=== PATIENT | male | born 1975 | race Caucasian/White ===

== ENCOUNTER 2018-02-23 11:24 | Emergency (ER) | payer BC ==
[2018-02-23 11:29] VITALS: BMI 24.7
[2018-02-23 11:31] VITALS: BP 123/82; PULSE 64; RESP 17; TEMP 97.8; O2SAT 96
--- NOTE | 2018-02-23 12:38 | ED PDOC ---
HPI: Back Time Seen by Provider: 02/23/18 12:14 Chief Complaint (Nursing): Back Pain Chief Complaint (Provider): Back Pain History Per: Patient History/Exam Limitations: no limitations Onset/Duration Of Symptoms: Days (x4) Current Symptoms Are (Timing): Still Present Additional Complaint(s): 42 y/o male with PMHx of asthma presenting for evaluation of right sided lower back pain x4 days. Patient states on Friday he was bending over to lift a heavy object when he felt the pain. He states its gradually been worsening and describes it as an aching and squeezing pain. He reports taking Tylenol for discomfort with his last dose yesterday night with mild relief. He states symptoms worsen with ambulation. He denies any trauma, falls, fever, chills, urinary symptoms, abdominal pain, chest pain, nausea, vomiting, shortness of breath, incontinence, saddles anesthesia, or radiation of pain. PMD: None Past Medical History Reviewed: Historical Data, Nursing Documentation, Vital Signs Vital Signs: Last Vital Signs Temp 97.8 F 02/23/18 11:29 Pulse 64 02/23/18 11:29 Resp 17 02/23/18 11:29 BP 123/82 02/23/18 11:29 Pulse Ox 96 02/23/18 11:29 - Medical History PMH: Asthma - Surgical History Surgical History: No Surg Hx - Family History Family History: States: Unknown Family Hx - Social History Current smoker - smoking cessation education provided: No Alcohol: None Drugs: Denies - Home Medications Home Medications: Ambulatory Orders Medication Instructions Recorded Albuterol Sulfate [Albuterol 2 puff IH QID #1 inh 01/01/14 Sulfate Hfa] Singulair 01/01/14 Cyclobenzaprine [Cyclobenzaprine 10 mg PO Q8 PRN #12 tab 02/23/18 HCl] Naproxen 500 mg PO BID PRN #20 tab 02/23/18 - Allergies Allergies/Adverse Reactions: Allergies Allergy/AdvReac Type Severity Reaction Status Date / Time Iodinated Contrast- Oral and Allergy Unknown unknown Verified 02/23/18 11:53 IV Dye shellfish derived Allergy Unknown unknown Verified 02/23/18 12:21 Review of Systems ROS Statement: Except As Marked, All Systems Reviewed And Found Negative Constitutional: Negative for: Fever, Chills Cardiovascular: Negative for: Chest Pain Respiratory: Negative for: Shortness of Breath Gastrointestinal: Negative for: Nausea, Vomiting, Abdominal Pain, Diarrhea Genitourinary Male: Negative for: Dysuria, Frequency, Incontinence Neurological: Negative for: Numbness Physical Exam - Reviewed Nursing Documentation Reviewed: Yes Vital Signs Reviewed: Yes - Physical Exam Comments: GENERAL APPEARANCE: Patient is awake, alert, oriented x 3, in no acute distress. Resting comfortably. SKIN: Warm, dry; (-) cyanosis. EYES: (-) conjunctival pallor. ENMT: Mucous membranes moist. Airway patent, (-) stridor. NECK: Supple, FROM (-) tenderness, (-) stiffness, (-) lymphadenopathy. CHEST AND RESPIRATORY: (-) rales, (-) rhonchi, (-) wheezes; breath sounds equal bilaterally. Respirations even and nonlabored, speaking in full sentences. HEART AND CARDIOVASCULAR: (-) irregularity; (-) murmur, (-) gallop. ABDOMEN AND GI: Soft; (-) tenderness; (-) distention (-) guarding. BACK: (+) right paralumbar tenderness, (+) spasm to right paralumbar area, (-) midline tenderness, (-) deformity. Straight leg raising (-) bilaterally. EXTREMITIES: (-) deformity. Distal pulses good bilaterally. NEURO AND PSYCH: Mental status as above. Intact sensation bilaterally; normal strength in extension of the knees, plantar and dorsiflexion of the toes. Gait steady, speech clear. EOMI and painless. (-) facial asymmetry (-) aphasia. - ECG O2 Sat by Pulse Oximetry: 96 (RA) Pulse Ox Interpretation: Normal Medical Decision Making Medical Decision Makin:22 Impression: Acute back pain/strain Plan: --Flexeril 10mg PO (Patient not driving home) --Toradol 30mg IM --Ultram 50mg PO --Reevaluation 1400 On re-evaluation, patient reports improvement of symptoms. On exam, patient remains AAOx3, in no acute distress. On exam, neck is supple, lungs CTA, cardiac RRR, abdomen is soft and non-tender, neuro exam shows no focal findings. Ambulatory in ED with a steady, unassisted gait. VSS, stable for discharge. Diagnostic results d/w the patient in great detail. Dx of acute back pain/ strain d/w the patient. Based on history, exam and diagnostic results plan will be for discharge and outpatient follow up. Advised to follow up with primary care physician/ortho in 1-2 days without fail. Advised to take medication as prescribed. Return to the emergency room at any time for any new or worsening symptoms. Patient states he fully agrees with and understands discharge instructions. States that he agrees with the plan and disposition. Verbalized and repeated discharge instructions and plan. I have given the patient opportunity to ask any additional questions. Scribe Attestation: Documented by Remi Newman, acting as a scribe for Joanie Mendez PA-C. Provider Scribe Attestation: All medical record entries made by the scribe were at my direction and personally dictated by me. I have reviewed the chart and agree that the record accurately reflects my personal performance of the history, physical exam, medical decision making, and the department course for this patient. I have also personally directed, reviewed, and agree with the discharge instructions and disposition. Disposition - Clinical Impression Clinical Impression: Acute back pain, Back strain - Patient ED Disposition Is Patient to be Admitted: No Counseled Patient/Family Regarding: Diagnosis, Need For Followup, Rx Given - Disposition Referrals: Lauren Su MD [Staff Provider] - [facility] [Outside] Disposition: Routine/Home Disposition Time: 14:04 Condition: STABLE Additional Instructions: FOLLOW UP WITH CLINIC/ORTHO IN 1-2 DAYS WITHOUT FAIL. RETURN TO ED WITH ANY NEW OR WORSENING SYMPTOMS. Prescriptions: Cyclobenzaprine [Cyclobenzaprine HCl] 10 mg PO Q8 PRN #12 tab PRN Reason: Muscle Spasm Naproxen 500 mg PO BID PRN #20 tab PRN Reason: Pain, Moderate (4-7) Instructions: Muscle Strain, Low Back Pain in Adults, Back Exercises Forms: [employer] (Kiswahili), [facility] ED School/Work Excuse Print Language: GABONESE - POA Present On Arrival: None
== END 2018-02-23 14:20 | disposition home or self-care (01) ==
LOC: H.ER 11:24
DX: S39.012A Strain of muscle, fascia and tendon of lower back, initial encounter (principal); X50.9XXA Other and unspecified overexertion or strenuous movements or postures, initial encounter; Y92.89 Other specified places as the place of occurrence of the external cause
CPT/HCPCS: 96372; 99282; J1885